=== PATIENT | female | born 1965 | race Caucasian/White ===

== ENCOUNTER 2020-07-09 21:08 | Emergency (ER) | payer OTHER ==
[~2020-07-09] VITALS: Ht 142.2 cm; Wt 47.6 kg
[2020-07-09 21:30] VITALS: BP 152/100
--- NOTE | 2020-07-09 21:33 | NUR ---
TO LOBBY A/W BED AMBULATORY
--- NOTE | 2020-07-09 22:32 | NUR ---
SEEN AND EXAMINED BY TANNER WITH ORDERS AND CARRIED OUT.
[2020-07-09] MEDS ORDERED: cephALEXin 500 MG CAP PO ONE (22:40)
[2020-07-09] MEDS ORDERED: SULFAMETH/TRIMETH DS 800/160MG 1 TAB PO ONE (22:40)
--- NOTE | 2020-07-09 22:45 | NUR ---
MEDICATED PER [facility] ORDER, PATIENT TOLERATED WELL.
[2020-07-09 22:55] VITALS: BP 152/100
--- NOTE | 2020-07-09 22:55 | NUR ---
Patient discharged with v/s stable. Written and verbal after care instructions given and explained. Patient alert, oriented and verbalized understanding of instructions. Ambulatory with steady gait. All questions addressed prior to discharge. ID band removed. Patient advised to follow up with PMD. Rx of KEFLEX 500MG, BACTRIM DS given. Patient educated on indication of medication including possible reaction and side effects. Opportunity to ask questions provided and answered.
== END 2020-07-09 22:55 | disposition home or self-care (01) ==
LOC: MED 21:08
DX: M79.89 Other specified soft tissue disorders (principal)
CPT/HCPCS: 99283